=== PATIENT | male | born 2000 | race Hispanic/Latino ===

== ENCOUNTER 2022-08-15 19:59 | Inpatient (IN) | payer OTHER ==
[~2022-08-15] VITALS: Ht 170.2 cm; Wt 94.6 kg
[2022-08-16] MEDS ORDERED: 0.9%NACL 1000ML 1,000 ML IV ONE
[2022-08-16] MEDS ORDERED: ONDANSETRON 4MG INJ IVP ONE
[2022-08-16 00:02] LABS: BASOPHILS % (AUTO) 0.4 % (0.0-5.0); HEMATOCRIT 50.8 % (42-54); MEAN CORPUSCULAR HGB CONC 34.4 g/dL (32.0-36.0); MEAN CORPUSCULAR VOLUME 90.1 fL (79-99); MONOCYTES % (AUTO) 3.4 % (3.0-13.0); PLATELET COUNT (AUTO) 394 K/uL (130-400); RED BLOOD CELL COUNT(AUTO) 5.64 MIL/uL (4.50-6.20); RED CELL DISTRIBUTION WIDTH 13.1 % (11.0-15.5); WHITE BLOOD COUNT (AUTO) 23.5 K/uL (4.8-10.8)
[2022-08-16 00:23] LABS: CARBON DIOXIDE 22 mmol/L (21-32); CHLORIDE 93 mmol/L (101-111); CREATININE 3.9 mg/dL (0.5-1.5); GLOMERULAR FILTR. RATE CALC 21 mL/min (>90); GLUCOSE,RANDOM 172 mg/dL (70-105); POTASSIUM 5.5 mmol/L (3.5-5.1); SODIUM SERUM 137 mmol/L (136-145); UREA NITROGEN, BLOOD 29 mg/dL (7-18)
[2022-08-16 00:37] LABS: ALANINE AMINOTRANSFERASE 104 U/L (12-78); ALBUMIN 6.8 g/dL (3.5-5.0); ASPARTATE AMINOTRANSFERASE 36 U/L (10-37); TOTAL PROTEIN, SERUM 11.3 g/dL (6.0-8.3)
[2022-08-16 00:39] LABS: CREATINE KINASE, TOTAL 806 U/L (21-232)
[2022-08-16 00:40] LABS: LIPASE < 50 U/L (114-286)
[2022-08-16] MEDS ORDERED: ONDANSETRON 4MG INJ IV PRN (02:30)
[2022-08-16] MEDS ORDERED: ACETAMINOPHEN 325 MG TAB PO PRN ×2 (02:30)
[2022-08-16] MEDS ORDERED: LACTULOSE 20 GM/30 ML UDCUP PO PRN (02:30)
[2022-08-16 02:31] LABS: CREATININE 2.4 mg/dL (0.5-1.5); POTASSIUM 4.9 mmol/L (3.5-5.1)
[2022-08-16] MEDS: 0.9%NACL 1000ML 1,000 ML IV SCH ×3 (03:24→18:55)
[2022-08-16] MEDS: CEFTRIAXONE 1G VIAL IVPB SCH (03:24)
[2022-08-16 04:22] VITALS: BP 134/80
[2022-08-16 07:30] VITALS: BP 130/70
[2022-08-16 08:22] LABS: BASOPHILS % (AUTO) 0.3 % (0.0-5.0); LYMPHOCYTES % (AUTO) 4.9 % (21.0-51.0); MEAN CORPUSCULAR HEMOGLOBIN 31.1 pg (27.0-33.0); MEAN CORPUSCULAR HGB CONC 34.1 g/dL (32.0-36.0); MEAN CORPUSCULAR VOLUME 91.1 fL (79-99); MONOCYTES % (AUTO) 4.6 % (3.0-13.0); NEUTROPHILS % (AUTO) 87.4 % (40.0-77.0); PLATELET COUNT (AUTO) 314 K/uL (130-400); RED CELL DISTRIBUTION WIDTH 13.4 % (11.0-15.5); WHITE BLOOD COUNT (AUTO) 18.7 K/uL (4.8-10.8)
[2022-08-16 08:30] LABS: HEMOGLOBIN A1C 5.5 % (4.0-6.0)
[2022-08-16] MEDS: FAMOTIDINE 20MG TAB PO SCH (08:43)
[2022-08-16 11:00] VITALS: BP 136/74
[2022-08-16 16:00] VITALS: BP 127/84
[2022-08-16 19:52] VITALS: BP 134/77
[2022-08-16 20:34] LABS: APPEARANCE,URINE CLEAR (CLEAR); BILIRUBIN,URINE NEGATIVE (NEGATIVE); COLOR,URINE LIGHT-YELLOW (YELLOW); GLUCOSE, URINE (UA) NEGATIVE (NEGATIVE); KETONES,URINE NEGATIVE (NEGATIVE); LEUKOCYTE ESTERASE ,URINE NEGATIVE Leu/uL (NEGATIVE); NITRATE,URINE NEGATIVE (NEGATIVE); OCCULT BLOOD,URINE NEGATIVE (NEGATIVE); PROTEIN,URINE NEGATIVE (NEGATIVE); UROBILINOGEN,URINE 0.2 mg/dL (0.2-1.0)
[2022-08-16 20:35] LABS: CREATININE,URINE RANDOM 102 mg/dL (30-135); SODIUM,URINE RANDOM 129 mmol/l (40-220)
[2022-08-16 20:37] LABS: RBC,URINE 0-1 /HPF (0-1); WBC,URINE 0-1 /HPF (0-1)
[2022-08-16 23:35] VITALS: BP 130/77
[2022-08-17] MEDS: 0.9%NACL 1000ML 1,000 ML IV SCH ×3 (01:53→18:30)
[2022-08-17] MEDS: CEFTRIAXONE 1G VIAL IVPB SCH (01:53)
[2022-08-17 03:22] VITALS: BP 116/62
[2022-08-17 05:31] LABS: HEMATOCRIT 38.5 % (42-54); MEAN CORPUSCULAR HEMOGLOBIN 31.4 pg (27.0-33.0); MEAN CORPUSCULAR HGB CONC 33.8 g/dL (32.0-36.0); PLATELET COUNT (AUTO) 247 K/uL (130-400); RED BLOOD CELL COUNT(AUTO) 4.14 MIL/uL (4.50-6.20); RED CELL DISTRIBUTION WIDTH 13.2 % (11.0-15.5); WHITE BLOOD COUNT (AUTO) 7.5 K/uL (4.8-10.8)
[2022-08-17 06:00] LABS: BAND NEUTROPHILS % (MANUAL) 1 % (0-2); EOSINOPHILS % (MANUAL) 1 % (1-6); LYMPHOCYTES % (MANUAL) 32 % (22-44); MAN.DIFF COMMENT-IMPRESSION MANUAL DIFFERENTIAL; MONOCYTES % (MANUAL) 12 % (2-9); REACTIVE LYMPHOCYTES 2 % (0-0); SEGMENTED NEUTROPHILS % 52 % (40-70)
[2022-08-17 06:07] LABS: MAGNESIUM 1.9 mg/dL (1.80-2.40); PHOSPHORUS 3.1 mg/dL (2.5-4.9); POTASSIUM 4.4 mmol/L (3.5-5.1); TOTAL PROTEIN, SERUM 7.1 g/dL (6.0-8.3)
[2022-08-17] MEDS: FAMOTIDINE 20MG TAB PO SCH (10:16)
[2022-08-17] MEDS ORDERED: 0.9%NACL 1000ML 1,000 ML IV ONE (10:30)
[2022-08-17] MEDS ORDERED: 0.9% NACL 500ML IV.SOLN 500 ML IV ONE (14:30)
[2022-08-17] MEDS ORDERED: LOPERAMIDE HCL 2 MG CAP PO ONE (14:30)
[2022-08-17 16:00] VITALS: BP 119/62
== END 2022-08-17 18:45 | disposition home or self-care (01) | DRG 683 ==
LOC: EDH 19:59 → EDBD 19:59 → EDHIP 20:00 → 3DH 08-16 04:24
PROVIDERS: ADMIT Hospitalist; ATTEND Hospitalist
DX: N17.9 Acute kidney failure, unspecified (principal); M62.82 Rhabdomyolysis; E86.0 Dehydration; D72.829 Elevated white blood cell count, unspecified; E87.5 Hyperkalemia; E66.09 Other obesity due to excess calories; Z68.32 Body mass index [BMI] 32.0-32.9, adult
CPT/HCPCS: 36415; 76770; 80048; 80053; 81001; 82550; 82570; 83036; 83605; 83690; 83735; 84100; 84145; 84300; 85025; 87040; G0378; J0696; J2405; J7030; J7040